=== PATIENT | female | born 1980 | race Caucasian/White ===

== ENCOUNTER 2017-10-15 08:22 | Day surgery (SDC) | payer OTHER ==
[~2017-10-15] VITALS: Ht 167.6 cm; Wt 108.9 kg
[2017-10-15] MEDS ORDERED: BUPIVACAINE-MPF 0.25% 30 ML VIAL INJ ONE (09:44)
[2017-10-15] MEDS ORDERED: ceFAZolin 1,000 MG VIAL ONE (09:44)
[2017-10-15] MEDS ORDERED: HYDROmorphone PFS 2 MG/ML SYR ONE (10:02)
[2017-10-15] MEDS ORDERED: fentaNYL 0.05 MG/ML VIAL ONE (10:02)
[2017-10-15] MEDS ORDERED: IBUP-2213 PO (10:15)
[2017-10-15] MEDS ORDERED: ONDANSETRON 4 MG/2 ML VIAL IVP PRN (10:55)
[2017-10-15] MEDS ORDERED: HYDROmorphone PFS 2 MG/ML SYR IVP PRN ×2 (10:55→11:55)
[2017-10-15] MEDS: HYDROmorphone PFS 2 MG/ML SYR ONE ×2 (11:15→11:31)
[2017-10-15] MEDS ORDERED: ACETAMINOPHEN 325 MG TAB PO PRN (11:55)
[2017-10-15] MEDS ORDERED: ONDANSETRON 4 MG/2 ML VIAL IV PRN (11:55)
[2017-10-15] MEDS ORDERED: HYDROcodone/APAP 5/325 MG 1 TAB TAB PO PRN (11:55)
[2017-10-15] MEDS ORDERED: MORPHINE SULFATE 2 MG/ML SYR IVP PRN (11:55)
[2017-10-15] MEDS ORDERED: MORPHINE SULFATE 4 MG/ML SYR IV PRN (11:55)
[2017-10-15] MEDS ORDERED: DEXAMETHASONE 4 MG/ML VIAL IVP ONE (12:23)
[2017-10-15] MEDS ORDERED: PROPOFOL 200 MG/20 ML VIAL IV ONE (12:23)
[2017-10-15] MEDS ORDERED: KETOROLAC 15 MG/ML VIAL IVP ONE (12:23)
[2017-10-15] MEDS ORDERED: ONDANSETRON 4 MG/2 ML VIAL IVP ONE ×2 (12:23→12:35)
[2017-10-15] MEDS ORDERED: DESFLURANE 240 ML BTL INH ONE (12:23)
[2017-10-15] MEDS ORDERED: HYDROcodone/APAP 5/325 MG 1 TAB TAB PO ONE (13:15)
== END 2017-10-15 13:45 | disposition home or self-care (01) ==
LOC: MDS 08:22 → MMU 08:24 → MDS 13:45
PROVIDERS: ATTEND Surgery
DX: K42.9 Umbilical hernia without obstruction or gangrene (principal); Z90.49 Acquired absence of other specified parts of digestive tract; E66.9 Obesity, unspecified; Z79.899 Other long term (current) drug therapy; Z98.890 Other specified postprocedural states
CPT/HCPCS: 49585; 71010; J0690; J1100; J1170; J1885; J2405; J2704; J3010; J3490; J7060; J7120; J2270